=== PATIENT | female | born 1995 | race African-American/Black ===

== ENCOUNTER 2017-10-18 11:17 | Emergency (ER) | payer OTHER ==
[2017-10-18 11:38] VITALS: TEMP 97.7; BMI 25.4
--- NOTE | 2017-10-18 13:17 | PDOC ---
History of Present Illness - General History Source: Patient Exam Limitations: No Limitations - History of Present Illness Initial Comments: 10/18/17 13:34 The patient is a 21 year old female with a significant PMH of asthma who presents to the emergency department via EMS with asthma complications today. The patient reports that she was using her asthma machine last night with no apparent relief. The patient reports that she called EMS today when she felt her chest tightening. The patient reports that she received an albuterol treatment en route to the ED. The patient reports associated non productive cough and a runny nose. The patient also reports being 5 months . She denies any related symptoms. She denies any vaginal bleeding or urinary symptoms. The patient denies any past intubations as per her asthma history. She denies being on any steroids. The patient denies any headache and dizziness. She denies fever, chills, nausea, vomit, diarrhea and constipation. The patient denies any other complaints <Paula Martínez - Last Filed: 10/18/17 13:33> - General History Source: Patient <NoryIshmael Rubio - Last Filed: 10/18/17 15:12> - General Chief Complaint: Asthma Stated Complaint: Asthma Time Seen by Provider: 10/18/17 13:12 Past History <Paula Martínez - Last Filed: 10/18/17 13:33> - Past Medical History Asthma: Yes COPD: No - Suicide/Smoking/Psychosocial Hx Smoking History: Never smoked <Ishmael Harrell - Last Filed: 10/18/17 15:12> - Past Medical History Allergies/Adverse Reactions: Allergies Allergy/AdvReac Type Severity Reaction Status Date / Time No Known Allergies Allergy Verified 10/18/17 11:35 Home Medications: Ambulatory Orders NK [No Known Home Medication] 10/18/17 Review of Systems - Review of Systems Able to Perform ROS?: Yes Comments:: 10/18/17 13:34 GENERAL/CONSTITUTIONAL: No fever or chills. No weakness. HEAD, EYES, EARS, NOSE AND THROAT:(+)runny nose. No change in vision. No ear pain or discharge. No sore throat. CARDIOVASCULAR: No chest pain or shortness of breath. RESPIRATORY:(+) asthma related complications, cough, wheezing. No hemoptysis. GASTROINTESTINAL: No nausea, vomiting, diarrhea or constipation. GENITOURINARY: No dysuria, frequency, or change in urination. MUSCULOSKELETAL: No joint or muscle swelling or pain. No neck or back pain. SKIN: No rash NEUROLOGIC: No headache, vertigo, loss of consciousness, or change in strength/ sensation. ENDOCRINE: No increased thirst. No abnormal weight change. HEMATOLOGIC/LYMPHATIC: No anemia, easy bleeding, or history of blood clots. ALLERGIC/IMMUNOLOGIC: No hives or skin allergy. <Paula Martínez - Last Filed: 10/18/17 13:33> *Physical Exam - Vital Signs Last Vital Signs Temp Pulse Resp BP Pulse Ox 97.7 F 98 H 17 112/77 99 10/18/17 11:35 10/18/17 11:35 10/18/17 11:35 10/18/17 11:35 10/18/17 11:35 - Physical Exam Comments: 10/18/17 13:35 GENERAL: Awake, alert, and fully oriented, in no acute distress HEAD: No signs of trauma EYES: PERRLA, EOMI, sclera anicteric, conjunctiva clear ENT: Auricles normal inspection, hearing grossly normal, nares patent, oropharynx clear without exudates. Moist mucosa NECK: Normal ROM, supple, no lymphadenopathy, JVD, or masses LUNGS:(+) coughing, mild wheezes bilaterally . Breath sounds equal. No crackles HEART: Regular rate and rhythm, normal S1 and S2, no murmurs, rubs or gallops ABDOMEN: (+)gravita abdomen .Soft, nontender, normoactive bowel sounds. No guarding, no rebound. No masses EXTREMITIES: Normal range of motion, no edema. No clubbing or cyanosis. No cords, erythema, or tenderness NEUROLOGICAL: Cranial nerves II through XII grossly intact. Normal speech, normal gait SKIN: Warm, Dry, normal turgor, no rashes or lesions noted. <Paula Martínez - Last Filed: 10/18/17 13:33> - Vital Signs Last Vital Signs Temp Pulse Resp BP Pulse Ox 97.7 F 98 H 17 112/77 99 10/18/17 11:35 10/18/17 11:35 10/18/17 11:35 10/18/17 11:35 10/18/17 11:35 <Ishmael Harrell - Last Filed: 10/18/17 15:12> Moderate Sedation - Procedure Monitoring Vital Signs: Vital Signs Temp Pulse Resp BP Pulse Ox 97.7 F 98 H 17 112/77 99 10/18/17 11:35 10/18/17 11:35 10/18/17 11:35 10/18/17 11:35 10/18/17 11:35 <Paula Martínez - Last Filed: 10/18/17 13:33> - Procedure Monitoring Vital Signs: Vital Signs Temp Pulse Resp BP Pulse Ox 97.7 F 98 H 17 112/77 99 10/18/17 11:35 10/18/17 11:35 10/18/17 11:35 10/18/17 11:35 10/18/17 11:35 <Ishmael Harrell - Last Filed: 10/18/17 15:12> ED Treatment Course - Medications Given in the ED: ED Medications Discontinued Medications Generic Name Dose Route Start Last Admin Trade Name Tierney PRN Reason Stop Dose Admin Albuterol/Ipratropium 1 amp 10/18/17 13:18 10/18/17 13:24 Duoneb - NEB 10/18/17 13:19 1 amp ONCE ONE Administration Prednisone 60 mg 10/18/17 13:25 10/18/17 13:26 Deltasone - PO 10/18/17 13:26 60 mg ONCE ONE Administration <Paula Martínez - Last Filed: 10/18/17 13:33> Medical Decision Making - Medical Decision Making 10/18/17 12:56 The patient is a 21 year old female with a significant PMH of asthma who presents to the emergency department via EMS with asthma complications today, symptoms started last night. Given treatment by EMS. nebs, prednisone 60mg po reassess 10/18/17 15:08 Patient still has persistent asthma complaints of still feeling tight. P/E mild wheezing bilateral I ambulated the patient with worsening of symptoms O2 sat after ambulation 91% on room air Will transfer care to Dr. Gallardo in the main for further eval. <Ishmael Harrell - Last Filed: 10/18/17 15:12> *DC/Admit/Observation/Transfer - Attestations Scribe Attestion: 10/18/17 13:35 Documentation prepared by Paula Martínez, acting as medical doctor md for Jaylen Casillas MD. <Paula Martínez - Last Filed: 10/18/17 13:33> <Ishmael Harrell - Last Filed: 10/18/17 15:12> Diagnosis at time of Disposition: Asthma exacerbation Qualifiers: Asthma severity: mild Asthma persistence: persistent Qualified Code(s): J45.31 - Mild persistent asthma with (acute) exacerbation - Referrals Referrals: Aldo Cardenas MD [Primary Care Provider] - - Patient Instructions - Post Discharge Activity
[2017-10-18] MEDS ORDERED: ALBUTEROL SO4 2.5/IPRATROPIUM 0.5 INH SOL 3 ML VIAL.NEB. NEB ONE ×3 (13:18→20:04)
[2017-10-18] MEDS ORDERED: ALBUTEROL SO4 0.083% IH SOL 2.5 MG/3 ML VIAL.NEB. NEB ONE ×5 (13:20→16:04)
[2017-10-18] MEDS ORDERED: predniSONE 20 MG TABLET (UD) ONE (13:25)
[2017-10-18] MEDS ORDERED: predniSONE 20 MG TABLET (UD) PO ONE (13:25)
[2017-10-18 17:37] VITALS: BP 94/53
--- NOTE | 2017-10-18 18:21 | PDOC ---
History of Present Illness - General History Source: Patient Exam Limitations: No Limitations - History of Present Illness Initial Comments: 10/18/17 18:22 The patient is a 21 year old female, 5 months , with past medical history of asthma presents to the emergency department with an asthma exacerbation. The patient was brought via ems because she was experiencing chest tightness, she was given an albuterol treatment en route. The patient reports the symptoms started last night with mild relief with medication. The patient states her asthma is aggravated by seasonal allergies. Denies any fever , chills, nausea, vomiting. Denies diarrhea or constipation. Denies any dysuria , hematuria, frequency or urgency to urinate. Denies any vaginal bleeding or discharge. Allergies: Seasonal allergies. Social history: None reported PCP: Dr. Aldo Cardenas MD <Sameera Lezama - Last Filed: 10/18/17 18:22> <Catarina Christianson - Last Filed: 10/18/17 20:29> - General Chief Complaint: Asthma Stated Complaint: Asthma Time Seen by Provider: 10/18/17 13:12 Past History <Sameera Lezama - Last Filed: 10/18/17 18:22> - Past Medical History Asthma: Yes COPD: No - Suicide/Smoking/Psychosocial Hx Smoking History: Never smoked <Catarina Christianson - Last Filed: 10/18/17 20:29> - Past Medical History Allergies/Adverse Reactions: Allergies Allergy/AdvReac Type Severity Reaction Status Date / Time No Known Allergies Allergy Verified 10/18/17 11:35 Home Medications: Ambulatory Orders Albuterol 0.083% Nebulizer Nirali [Ventolin 0.083% Nebulizer Soln -] 1 neb NEB Q4H PRN #20 vial 10/18/17 Albuterol Sulfate Inhaler - [Ventolin Hfa Inhaler -] 1 - 2 inh PO Q4H PRN #1 inhaler 10/18/17 Methylprednisolone [Medrol Dose Loi] 4 mg PO ASDIR #21 tablet 10/18/17 Review of Systems - Review of Systems Able to Perform ROS?: Yes Comments:: 10/18/17 18:24 CONSTITUTIONAL: Absent: fever, no chills, no fatigue EYES: Absent: visual changes ENT: Absent: ear pain, no sore throat CARDIOVASCULAR:(+) Chest tightness. Absent: chest pain, no palpitations RESPIRATORY: (+) wheezing Absent: cough. GI: Absent: abdominal pain, no nausea, no vomiting, no constipation, no diarrhea GENITOURINARY: Absent: dysuria, no frequency, no hematuria MUSKULOSKELETAL: Absent: back pain, no arthralgia, no myalgia SKIN: Absent: rash NEURO: Absent: headache <Sameera Lezama - Last Filed: 10/18/17 18:22> *Physical Exam - Vital Signs Last Vital Signs Temp Pulse Resp BP Pulse Ox 97.7 F 90 20 94/53 94 L 10/18/17 11:35 10/18/17 17:36 10/18/17 17:36 10/18/17 17:36 10/18/17 17:36 - Physical Exam Comments: 10/18/17 18:22 GENERAL: During physical exam the patient wasnt in any acute distress. She was alert and conversive. Well-appearing, well-nourished. No apparent distress. HEENT: Normocephalic, atraumatic. PERRL, EOM intact. CARDIOVASCULAR: Normal S1, S2. Regular rate and rhythm. PULMONARY: (+) Mild left base coarse wheezing. Clear to auscultation bilaterally. ABDOMEN: Protuberant abdomen (5 months ), . Soft, non-distended, non-tender. EXTREMITIES: Normal ROM in all four extremities. No gross deformities. SKIN: Warm, dry. No rash NEUROLOGICAL: No focal neurological deficits. <Sameera Lezama - Last Filed: 10/18/17 18:22> - Vital Signs Last Vital Signs Temp Pulse Resp BP Pulse Ox 97.7 F 90 20 94/53 94 L 10/18/17 11:35 10/18/17 17:36 10/18/17 17:36 10/18/17 17:36 10/18/17 17:36 <Catarina Christianson - Last Filed: 10/18/17 20:29> Moderate Sedation - Procedure Monitoring Vital Signs: Vital Signs Temp Pulse Resp BP Pulse Ox 97.7 F 90 20 94/53 94 L 10/18/17 11:35 10/18/17 17:36 10/18/17 17:36 10/18/17 17:36 10/18/17 17:36 <Sameera Lezama - Last Filed: 10/18/17 18:22> - Procedure Monitoring Vital Signs: Vital Signs Temp Pulse Resp BP Pulse Ox 97.7 F 90 20 94/53 94 L 10/18/17 11:35 10/18/17 17:36 10/18/17 17:36 10/18/17 17:36 10/18/17 17:36 <Catarina Christianson - Last Filed: 10/18/17 20:29> ED Treatment Course - Medications Given in the ED: ED Medications Discontinued Medications Generic Name Dose Route Start Last Admin Trade Name Freq PRN Reason Stop Dose Admin Albuterol Sulfate 1 amp 10/18/17 13:20 10/18/17 14:20 Ventolin 0.083% Nebulizer Soln - NEB 10/18/17 13:21 1 amp ONCE ONE Administration Albuterol Sulfate 1 amp 10/18/17 14:16 10/18/17 16:08 Ventolin 0.083% Nebulizer Soln - NEB 10/18/17 14:17 1 amp ONCE ONE Administration Albuterol/Ipratropium 1 amp 10/18/17 13:18 10/18/17 13:24 Duoneb - NEB 10/18/17 13:19 1 amp ONCE ONE Administration Prednisone 60 mg 10/18/17 13:25 10/18/17 13:26 Deltasone - PO 10/18/17 13:26 60 mg ONCE ONE Administration <Sameera Lezama - Last Filed: 10/18/17 18:22> - LABORATORY CBC & Chemistry Diagram: 10/18/17 18:20 10/18/17 18:20 - RADIOLOGY Radiology Studies Ordered: Category Date Time Status FOLLOW-UP US [US] Stat Ultrasound 10/18/17 18:12 Ordered - Medications Given in the ED: ED Medications Discontinued Medications Generic Name Dose Route Start Last Admin Trade Name Freq PRN Reason Stop Dose Admin Albuterol Sulfate 1 amp 10/18/17 13:20 10/18/17 14:20 Ventolin 0.083% Nebulizer Soln - NEB 10/18/17 13:21 1 amp ONCE ONE Administration Albuterol Sulfate 1 amp 10/18/17 14:16 10/18/17 16:08 Ventolin 0.083% Nebulizer Soln - NEB 10/18/17 14:17 1 amp ONCE ONE Administration Albuterol/Ipratropium 1 amp 10/18/17 13:18 10/18/17 13:24 Duoneb - NEB 10/18/17 13:19 1 amp ONCE ONE Administration Prednisone 60 mg 10/18/17 13:25 10/18/17 13:26 Deltasone - PO 10/18/17 13:26 60 mg ONCE ONE Administration <Catarina Christianson - Last Filed: 10/18/17 20:29> Medical Decision Making - Medical Decision Making 10/18/17 20:21 21-year-old female who is 20 weeks presenting with asthma exacerbation. Patient reassessment patient received prednisone and steroids and is no longer wheezing ultrasound showed a single live IUP 20 weeks and 6 days. The heart tones 129 I spoke to labor and delivery and they said that he would not do anything in monitoring except to note heart tones which were already found on her ultrasound. Does not have any pelvic pain and she denies any pelvic bleeding Patient had run out of her albuterol nebs and therefore prescriptions will be sent to her pharmacy <Catarina Christianson - Last Filed: 10/18/17 20:29> *DC/Admit/Observation/Transfer - Attestations Scribe Attestion: 10/18/17 18:25 Documentation prepared by Sameera Lezama, acting as claim review medical director for Catarina Christianson MD. <Sameera Lezama - Last Filed: 10/18/17 18:22> <Catarina Christianson - Last Filed: 10/18/17 20:29> Diagnosis at time of Disposition: Asthma exacerbation Qualifiers: Asthma severity: mild Asthma persistence: persistent Qualified Code(s): J45.31 - Mild persistent asthma with (acute) exacerbation Qualifiers: Weeks of gestation: 20 weeks Qualified Code(s): Z3A.20 - 20 weeks gestation of - Discharge Dispostion Disposition: HOME Condition at time of disposition: Stable - Prescriptions Prescriptions: Albuterol 0.083% Nebulizer Nirali [Ventolin 0.083% Nebulizer Soln -] 1 neb NEB Q4H PRN #20 vial PRN Reason: Asthma Albuterol Sulfate Inhaler - [Ventolin Hfa Inhaler -] 1 - 2 inh PO Q4H PRN #1 inhaler PRN Reason: Asthma Methylprednisolone [Medrol Dose Loi] 4 mg PO ASDIR #21 tablet - Referrals Referrals: Aldo Cardenas MD [Primary Care Provider] - - Patient Instructions Printed Discharge Instructions: DI for Asthma -- Adult, DI for -- Discomforts and Remedies Additional Instructions: 1-PLEASE SHADE HANGER YOUR PRESCRIPTION AT YOUR PHARMACY 2-PLEASE FOLLOW UP WITH YOUR SWEET GOODS MACHINE OPERATOR 3-RETURN FOR ANY WORSENING SYMPTOMS - Post Discharge Activity
[2017-10-18 18:35] LABS: BASO % 0.4 % (0-2.0); HEMATOCRIT 36.2 % (32.4-45.2); HEMOGLOBIN 12.2 GM/dL (10.7-15.3); LYMPH % 6.9 % (8-40); MCH 32.7 pg (25.7-33.7); MCHC 33.6 g/dl (32.0-36.0); MEAN CELL VOLUME 97.1 fl (80-96); MEAN PLT VOLUME 7.4 fl (7.5-11.1); MONO % 1.8 % (3.8-10.2); NEUT % 89.9 % (42.8-82.8); PLATELET COUNT 284 K/MM3 (134-434); RBC 3.73 M/mm3 (3.60-5.2); RDW 15.6 % (11.6-15.6); WHITE BLOOD COUNT 11.9 K/mm3 (4.0-10.0)
[2017-10-18 19:20] LABS: ALBUMIN 3.3 g/dl (3.4-5.0); ALK PHOS 50 U/L (45-117); ANION GAP 9 (8-16); BILIRUBIN,TOTAL 0.3 mg/dL (0.2-1.0); BLOOD UREA NITROGEN 5 mg/dL (7-18); CALCIUM 8.8 mg/dL (8.5-10.1); CHLORIDE 107 mmol/L (98-107); CO2 21 mmol/L (21-32); CREATININE 0.6 mg/dL (0.55-1.02); GLUCOSE,RANDOM 79 mg/dL (74-106); POTASSIUM 3.7 mmol/L (3.5-5.1); SGOT/AST 17 U/L (15-37); SGPT/ALT 20 U/L (12-78); SODIUM 137 mmol/L (136-145); TOT PROT 7.3 g/dl (6.4-8.2)
[2017-10-18 20:10] VITALS: PULSE 97
[2017-10-19] MEDS ORDERED: predniSONE 20 MG TABLET (UD) PO ONE (13:19)
== END 2017-10-18 20:36 | disposition home or self-care (01) ==
LOC: JERFT 11:17 → JER 11:17
PROC: 3E0F7GC Introduction of Other Therapeutic Substance into Respiratory Tract, Via Natural or Artificial Opening (ICD-10-PCS; principal; 2017-10-18)
PROC: 3E0F7GC Introduction of Other Therapeutic Substance into Respiratory Tract, Via Natural or Artificial Opening (ICD-10-PCS; 2017-10-18)
PROC: 3E0F7GC Introduction of Other Therapeutic Substance into Respiratory Tract, Via Natural or Artificial Opening (ICD-10-PCS; 2017-10-18)
DX: O99.512 Diseases of the respiratory system complicating pregnancy, second trimester (principal); J45.31 Mild persistent asthma with (acute) exacerbation; Z3A.20 20 weeks gestation of pregnancy
CPT/HCPCS: 36415; 76816-TC; 80053; 85025; 94640; 99281-25; J7620

== ENCOUNTER 2018-02-24 03:50 | Inpatient (IN) | payer OTHER ==
[2018-02-24] MEDS ORDERED: LACTATED RINGERS SOLUTION 1,000 ML IV SCH (04:30)
[2018-02-24 04:43] VITALS: BMI 22.8
[2018-02-24] MEDS ORDERED: AMPICILLIN SODIUM 2 GM VIAL ONE (04:44)
[2018-02-24] MEDS ORDERED: AMPICILLIN - 2 GM in SODIUM CHLORIDE 100 ML IVPB ONE (04:53)
[2018-02-24 05:31] LABS: BASO % 0.7 % (0-2.0); EOS % 2.5 % (0-4.5); HEMATOCRIT 38.9 % (32.4-45.2); HEMOGLOBIN 13.3 GM/dL (10.7-15.3); LYMPH % 22.5 % (8-40); MCH 33.3 pg (25.7-33.7); MCHC 34.2 g/dl (32.0-36.0); MEAN CELL VOLUME 97.4 fl (80-96); MEAN PLT VOLUME 8.4 fl (7.5-11.1); MONO % 6.7 % (3.8-10.2); NEUT % 67.6 % (42.8-82.8); PLATELET COUNT 293 K/MM3 (134-434); RBC 3.99 M/mm3 (3.60-5.2); RDW 14.2 % (11.6-15.6); WHITE BLOOD COUNT 10.7 K/mm3 (4.0-10.0)
[2018-02-24] MEDS ORDERED: ACETAMINOPHEN 325 MG TABLET (FP) ONE (05:34)
[2018-02-24] MEDS: ACETAMINOPHEN 325 MG TABLET (FP) PO PRN ×4 (05:35→16:45)
[2018-02-24] MEDS ORDERED: IBUPROFEN 600 MG TABLET (FP) PO ONE (05:35)
[2018-02-24] MEDS: IBUPROFEN 600 MG TABLET (FP) PO PRN ×4 (05:35→16:46)
[2018-02-24 05:43] LABS: INR 0.9 (0.83-1.09); PROTHROMBIN TIME (PATIENT) 10.2 SEC (9.7-13.0)
[2018-02-24] MEDS ORDERED: WITCH HAZEL 50% (TUCKS) 40 PAD/JAR PAD TP PRN (05:43)
[2018-02-24] MEDS ORDERED: METHYLERGONOVINE MALEATE 0.2 MG/1 ML AMP IM PRN (05:43)
[2018-02-24] MEDS ORDERED: BISACODYL 10 MG SUPP.RECT RC PRN (05:43)
[2018-02-24] MEDS ORDERED: BENZOCAINE 20% 57 GM BOTTLE TP PRN (05:43)
[2018-02-24] MEDS ORDERED: BENZOCAINE 28 GM HEMORRHOIDAL OINTMENT TP PRN (05:43)
--- NOTE | 2018-02-24 05:43 | HP ---
Past Medical History - Admission Chief Complaint: Labor pain History of Present Illness: 22 yo @39 weeks gestation, admitted due to c/o spontaneous rupture of membrane. Upon admission she was 6cm dilated. History Source: Patient Limitations to Obtaining History: No Limitations - Past Medical History ...: 2 ...Para: 1 ...Term: 1 ...: 0 ...Spon : 0 ...Induced : 0 ...Multiple Gestation: 0 ... Weeks Gestation by Dates: 39.2 ...EDC by Dates: 03/01/18 - Past Surgical History Past Surgical History: Yes: None Hx Myomectomy: No Hx Transabdominal Cerclage: No - Smoking History Smoking history: Never smoked - Alcohol/Substance Use Hx Alcohol Use: No History of Substance Use: reports: None - Social History History of Recent Travel: No Home Medications - Allergies Allergies/Adverse Reactions: Allergies Allergy/AdvReac Type Severity Reaction Status Date / Time No Known Allergies Allergy Verified 10/18/17 11:35 - Home Medications Home Medications: Ambulatory Orders Albuterol 0.083% Nebulizer Nirali [Ventolin 0.083% Nebulizer Soln -] 1 neb NEB Q4H PRN #20 vial 10/18/17 Albuterol Sulfate Inhaler - [Ventolin Hfa Inhaler -] 1 - 2 inh PO Q4H PRN #1 inhaler 10/18/17 Methylprednisolone [Medrol Dose Loi] 4 mg PO ASDIR #21 tablet 10/18/17 Family Disease History - Family Disease History Family History: Unremarkable Review of Systems - Review of Systems Constitutional: reports: No Symptoms Eyes: reports: No Symptoms HENT: reports: No Symptoms Neck: reports: No Symptoms Cardiovascular: reports: No Symptoms Respiratory: reports: No Symptoms Gastrointestinal: reports: No Symptoms Genitourinary: reports: Pain Breasts: reports: No Symptoms Reported Musculoskeletal: reports: No Symptoms Integumentary: reports: No Symptoms Neurological: reports: No Symptoms Endocrine: reports: No Symptoms Hematology/Lymphatic: reports: No Symptoms Psychiatric: reports: No Symptoms Pain Intensity: 7 Physical Exam - Maternity Vital Signs: Vital Signs Temperature 97.8 F 02/24/18 04:35 Pulse Rate 94 H 02/24/18 04:35 Respiratory Rate 20 02/24/18 04:35 Blood Pressure 126/76 02/24/18 04:35 O2 Sat by Pulse Oximetry (%) Constitutional: Yes: Well Nourished Eyes: Yes: Conjunctiva Clear HENT: Yes: Atraumatic Neck: Yes: Supple Cardiovascular: Yes: Regular Rate and Rhythm Lungs: Clear to auscultation - Abdominal Exam/OB Number of Fetuses: Single Presentation: Vertex - Vaginal Exam/OB Dilatation (cm): 6 Effacement (%): 100 Amniotic Membrane Status: Ruptured - Physical Exam ...Motor Strength: WNL Psychiatric: Yes: Alert, Oriented - Labs Lab Results: CBC, BMP 02/24/18 04:29 Problem List - Problems (1) Spontaneous rupture of membranes Code(s): [id number] - Assessment/Plan Spontaneous rupture of membrane Admit to L&D Analgesia as needed Anticipate
[2018-02-24] MEDS ORDERED: DEXTROSE 5%-LACTATED RINGERS 1,000 ML IV SCH (05:45)
[2018-02-24] MEDS ORDERED: OXYTOCIN 20 UNITS in 0.9% NS 20 UNIT/1,000 ML INFUS.BAG IV SCH (05:45)
[2018-02-24 05:46] LABS: ACTIVATED PTT 27.2 SECONDS (25.2-36.5)
--- NOTE | 2018-02-24 05:47 | PN ---
Delivery - Delivery Vaginal Delivery: Spontaneous Episiotomy/Laceration: None EBL (cc): 250 Delivery, Single - Feeding Plan Initial Plan: Elected not to breastfeed exclusively throughout hospitalization Remarks - Remarks Remarks: Normal spontaneous vaginal delivery of a live infant boy over intact perineum. Nose / Oropharynx suctioned @ perineum. Cord clamped and cut. Placenta expelled spontaneously intact. Baby handed to Grain Handler. Mother in stable condition.
[2018-02-24 05:55] LABS: ALBUMIN 2.8 g/dl (3.4-5.0); ALK PHOS 106 U/L (45-117); ANION GAP 12 MMOL/L (8-16); BILIRUBIN,TOTAL 0.3 mg/dL (0.2-1); BLOOD UREA NITROGEN 7 mg/dL (7-18); CHLORIDE 108 mmol/L (98-107); CO2 22 mmol/L (21-32); CREATININE 0.6 mg/dL (0.55-1.3); GLUCOSE,RANDOM 87 mg/dL (74-106); POTASSIUM 3.8 mmol/L (3.5-5.1); SGOT/AST 17 U/L (15-37); SGPT/ALT 21 U/L (13-61); SODIUM 141 mmol/L (136-145); TOT PROT 6.8 g/dl (6.4-8.2)
[2018-02-24] MEDS ORDERED: TUBERCULIN PPD 5 TU/0.1ML SYRINGE (IN PATIENT USE ONLY) ID ONE (06:00)
[2018-02-24 08:41] LABS: URINE APPEARANCE TURBID; URINE BILIRUBIN NEGATIVE (<2.0 mg/dL); URINE COLOR RED; URINE GLUCOSE (UA) 1+ (NEGATIVE); URINE KETONE NEGATIVE (NEGATIVE); URINE LEUK ESTERASE NEGATIVE (NEGATIVE); URINE NITRITE NEGATIVE (NEGATIVE); URINE UROBILINOGEN NEGATIVE mg/dL (0.2-1.0)
[2018-02-24 08:52] LABS: URINE PROTEIN 3+ (NEGATIVE)
[2018-02-24] MEDS ORDERED: AMPICILLIN - 1 GM in SODIUM CHLORIDE 100 ML IVPB SCH (09:00)
[2018-02-24] MEDS: FERROUS SO4 325 MG TABLET (FP) PO SCH ×2 (09:24→21:38)
[2018-02-24] MEDS: PRENATAL VITAMINS W/ FOLIC ACID TABLET (FP) PO SCH (09:25)
[2018-02-24 09:49] LABS: COCAINE, UR NEGATIVE ng/ml (CUTOFF=300); METHADONE, UR NEGATIVE ng/ml (CUTOFF=300); OPIATES, URI NEGATIVE ng/ml (CUTOFF=300); PHENCYCLIDINE,URINE NEGATIVE ng/ml (CUTOFF=25); URINE AMPHETAMINES NEGATIVE ng/ml (CUTOFF=500); URINE BARBITURATES NEGATIVE ng/ml (CUTOFF=200); URINE BENZODIAZEPINES NEGATIVE ng/ml (CUTOFF=200)
[2018-02-25] MEDS: ACETAMINOPHEN 325 MG TABLET (FP) PO PRN ×4 (01:29→19:33)
[2018-02-25] MEDS: IBUPROFEN 600 MG TABLET (FP) PO PRN ×4 (01:30→19:33)
[2018-02-25 06:09] LABS: HBsAG SCREEN Negative (Negative)
[2018-02-25 07:23] LABS: BASO % 1.1 % (0-2.0); EOS % 3.9 % (0-4.5); HEMATOCRIT 37.4 % (32.4-45.2); HEMOGLOBIN 12.6 GM/dL (10.7-15.3); LYMPH % 21.8 % (8-40); MCH 33.1 pg (25.7-33.7); MCHC 33.8 g/dl (32.0-36.0); MEAN CELL VOLUME 97.7 fl (80-96); NEUT % 67.2 % (42.8-82.8); PLATELET COUNT 244 K/MM3 (134-434); RBC 3.82 M/mm3 (3.60-5.2); RDW 14.2 % (11.6-15.6); WHITE BLOOD COUNT 13.4 K/mm3 (4.0-10.0)
[2018-02-25 08:08] LABS: RUBELLA IgG ANTIBODY 1.34 index (Immune >0.99)
[2018-02-25] MEDS: PRENATAL VITAMINS W/ FOLIC ACID TABLET (FP) PO SCH (09:03)
[2018-02-25] MEDS: FERROUS SO4 325 MG TABLET (FP) PO SCH ×2 (09:03→23:17)
--- NOTE | 2018-02-25 10:00 | PN ---
Post Progress Note - Subjective Subjective: 22 yo Para 1 status post vaginal delivery, seen and evaluated. Doing well. Post Day: 1 Type of Delivery: Vital Signs: Vital Signs Temperature 97.7 F 02/25/18 07:20 Pulse Rate 65 02/25/18 07:20 Respiratory Rate 20 02/25/18 07:20 Blood Pressure 107/63 02/25/18 07:20 O2 Sat by Pulse Oximetry (%) Breast Exam: Yes: Soft Uterus: Yes: Fundus Firm Abdomen/GI: Yes: Abdomen soft, Tolerating PO Lochia: Yes: Rubra Lochia, amount: Moderate Extremities: Yes: Calves non-tender Perineum: Yes: Intact Activity: Ambulating - Labs Labs: CBC WBC 13.4 K/mm3 (4.0-10.0) H 02/25/18 06:45 RBC 3.82 M/mm3 (3.60-5.2) 02/25/18 06:45 Hgb 12.6 GM/dL (10.7-15.3) 02/25/18 06:45 Hct 37.4 % (32.4-45.2) 02/25/18 06:45 MCV 97.7 fl (80-96) H 02/25/18 06:45 MCH 33.1 pg (25.7-33.7) 02/25/18 06:45 MCHC 33.8 g/dl (32.0-36.0) 02/25/18 06:45 RDW 14.2 % (11.6-15.6) 02/25/18 06:45 Plt Count 244 K/MM3 (134-434) 02/25/18 06:45 MPV 8.0 fl (7.5-11.1) 02/25/18 06:45 Absolute Neuts (auto) 9.0 K/mm3 (1.5-8.0) H 02/25/18 06:45 Neutrophils % 67.2 % (42.8-82.8) 02/25/18 06:45 Lymphocytes % 21.8 % (8-40) 02/25/18 06:45 Monocytes % 6.0 % (3.8-10.2) 02/25/18 06:45 Eosinophils % 3.9 % (0-4.5) 09/28/18 06:45 Basophils % 1.1 % (0-2.0) 02/25/18 06:45 Nucleated RBC % 0 % (0-0) 02/25/18 06:45 Problem List - Problems (1) Spontaneous rupture of membranes Code(s): SHR9964 - (2) Status post normal vaginal delivery Code(s): PAG0864 - Assessment/Plan Status post vaginal delivery Stable Continue routine care
[2018-02-25] MEDS ORDERED: SENNOSIDES/DOCUSATE COMBO (SENNA PLUS) TABLET (UD) PO PRN (22:00)
[2018-02-26] MEDS: IBUPROFEN 600 MG TABLET (FP) PO PRN (00:56)
[2018-02-26] MEDS: ACETAMINOPHEN 325 MG TABLET (FP) PO PRN (00:57)
[2018-02-26 09:09] VITALS: BP 105/67; PULSE 62; TEMP 97.8
[2018-02-26] MEDS: PRENATAL VITAMINS W/ FOLIC ACID TABLET (FP) PO SCH (09:12)
[2018-02-26] MEDS: FERROUS SO4 325 MG TABLET (FP) PO SCH (09:12)
--- NOTE | 2018-02-26 10:43 | DS ---
Physical Exam-DIANETICIST Vital Signs: Vital Signs Temperature 97.8 F 02/26/18 09:00 Pulse Rate 62 02/26/18 09:00 Respiratory Rate 20 02/26/18 09:00 Blood Pressure 105/67 02/26/18 09:00 O2 Sat by Pulse Oximetry (%) Constitutional: Yes: Well Nourished, No Distress, Calm Eyes: Yes: WNL, Conjunctiva Clear, EOM Intact HENT: Yes: Atraumatic, Normocephalic Neck: Yes: WNL, Supple, Trachea Midline Cardiovascular: Yes: WNL, Regular Rate and Rhythm Respiratory: Yes: WNL, Regular, CTA Bilaterally Gastrointestinal: Yes: WNL ...Rectal Exam: Yes: WNL Renal/: Yes: WNL Breast(s): Yes: WNL Musculoskeletal: Yes: WNL Extremities: Yes: WNL Integumentary: Yes: WNL Neurological: Yes: WNL, Alert, Oriented ...Motor Strength: WNL Psychiatric: Yes: WNL, Alert, Oriented Labs: CBC, BMP 02/25/18 06:45 02/24/18 04:25 Delivery - Delivery Vaginal Delivery: Spontaneous Type of Anesthesia: None Episiotomy/Laceration: None EBL (cc): 250 Delivery, Single - Stages of Labor Date 1st Stage Initiatied: 02/24/18 Time 1st Stage Initiated: 03:00 Date 2nd Stage Initiated: 02/24/18 Time 2nd Stage Initiated: 05:00 Date of Delivery: 02/24/18 Time of Delivery: 05:17 Time Placenta Delivered: 05:20 - Condition of Cash Management Clerk/Cds Sales Advisor Present: Yes Infant Gender: Male Weight: 2.637 kg Position: Left, OA Total Hours ROM (Hrs/Mins): 2 hours 3 min - 1 Minute Total Score: 9 5 Minutes Total Score: 9 - [place] Feeding Plan Initial Plan: Elected not to breastfeed exclusively throughout hospitalization Remarks - Remarks Remarks: PPD#2 s/p Uncomplicated delivery Routine PP course D/C to home today with follow up in 6 weeks Discharge Summary Reason For Visit: LABOR Current Active Problems Spontaneous rupture of membranes (Acute) Status post normal vaginal delivery (Acute) Condition: Stable - Instructions Disposition: HOME - Home Medications Comprehensive Discharge Medication List: Ambulatory Orders Albuterol 0.083% Nebulizer Nirali [Ventolin 0.083% Nebulizer Soln -] 1 neb NEB Q4H PRN #20 vial 10/18/17 Albuterol Sulfate Inhaler - [Ventolin Hfa Inhaler -] 1 - 2 inh PO Q4H PRN #1 inhaler 10/18/17 Methylprednisolone [Medrol Dose Loi] 4 mg PO ASDIR #21 tablet 10/18/17
== END 2018-02-26 14:20 | disposition home or self-care (01) | DRG 560 ==
LOC: JLDR 03:50 → J3W 08:15
PROVIDERS: ADMIT Obstetrics & Gynecology; ATTEND Obstetrics & Gynecology
PROC: 10E0XZZ Delivery of Products of Conception, External Approach (ICD-10-PCS; principal; 2018-02-24)
DX: O80 Encounter for full-term uncomplicated delivery (principal); Z3A.39 39 weeks gestation of pregnancy; Z37.0 Single live birth
CPT/HCPCS: 36415; 59409; 80053; 80307; 81003; 81015; 85025; 85610; 85730; 86593; 86762; 86850; 86900; 86901; 87340; 87389

== ENCOUNTER 2022-03-28 11:16 | Emergency (ER) | payer OTHER ==
[2022-03-28 11:27] VITALS: BP 122/68; PULSE 70; RESP 18; TEMP 97.4; BMI 25.3
[2022-03-28] MEDS ORDERED: SODIUM CHLORIDE 0.9% 500 ML INFUS.BAG IV ONE (12:40)
[2022-03-28] MEDS ORDERED: ACETAMINOPHEN 1000 MG/100 ML BAG IVPB ONE (12:40)
[2022-03-28] MEDS ORDERED: ACETAMINOPHEN INJECTION 100 ML IVPB ONE (13:16)
[2022-03-28 14:04] LABS: BASO % 3.5 % (0-2.0); EOS % 4.3 % (0-4.5); HEMATOCRIT 43.4 % (32.4-45.2); HEMOGLOBIN 14.9 GM/dL (10.7-15.3); LYMPH % 40.3 % (8-40); MCH 32.6 pg (25.7-33.7); MCHC 34.4 g/dl (32.0-36.0); MEAN CELL VOLUME 94.6 fl (80-96); MEAN PLT VOLUME 7.4 fl (7.5-11.1); MONO % 8.1 % (3.8-10.2); NEUT % 43.8 % (42.8-82.8); PLATELET COUNT 432 10^3/uL (134-434); RBC 4.58 M/mm3 (3.60-5.2); RDW 14.5 % (11.6-15.6)
[2022-03-28 14:14] LABS: ALBUMIN 4.3 g/dl (3.4-5.0); CALCIUM 9.3 mg/dL (8.5-10.1)
[2022-03-28 14:18] LABS: CREATININE 0.9 mg/dL (0.55-1.3)
[2022-03-28 14:20] LABS: BILIRUBIN,TOTAL 0.3 mg/dL (0.2-1); TOT PROT 8.4 g/dl (6.4-8.2)
[2022-03-28 15:12] LABS: EPI CELLS 13 /uL (0-25.1); HCG,QUALITATIVE URINE Negative; HYALINE CASTS 6 /uL (0-3.1); PH,URINE 5.5 (5.0-8.0); URINE APPEARANCE CLOUDY; URINE BACTERIA 553 /uL (0-1359); URINE BILIRUBIN NEGATIVE (NEGATIVE); URINE COLOR ORANGE; URINE GLUCOSE (UA) NEGATIVE (NEGATIVE); URINE KETONE NEGATIVE (NEGATIVE); URINE LEUK ESTERASE 1+ (NEGATIVE); URINE NITRITE NEGATIVE (NEGATIVE); URINE PROTEIN 3+ (NEGATIVE); URINE RBC 390 /uL (0-23.9); URINE WBC 431 /uL (0-25.8)
== END 2022-03-28 16:10 | disposition home or self-care (01) ==
LOC: JERFT 11:16 → JER 11:16 → JERFT 16:10
PROC: 3E0333Z Introduction of Anti-inflammatory into Peripheral Vein, Percutaneous Approach (ICD-10-PCS; principal; 2022-03-28)
DX: N30.01 Acute cystitis with hematuria (principal)
CPT/HCPCS: 36415; 71046-TC-FY; 80053; 81003; 84703; 85025; 87086; 87186; 96374; 99284-25

== ENCOUNTER 2023-01-09 14:38 | Inpatient (IN) | payer OTHER ==
[2023-01-09] MEDS ORDERED: ALBUTEROL SO4 2.5/IPRATROPIUM 0.5 INH SOL 3 ML VIAL.NEB. NEB ONE ×4 (14:54→19:54)
[2023-01-09 14:55] VITALS: BMI 31.5
[2023-01-09] MEDS ORDERED: DEXAMETHASONE SOD PHOSPHATE 10 MG/1 ML VIAL ONE (15:52)
[2023-01-09] MEDS ORDERED: MAGNESIUM SULFATE IN WATER 2 GM/50 ML IVPB IVPB ONE ×2 (15:54→15:56)
[2023-01-09] MEDS ORDERED: DEXAMETHASONE SOD PHOSPHATE 10 MG/1 ML VIAL IVPUSH ONE (15:57)
[2023-01-09 16:51] LABS: BASO % 1.5 % (0-2.0); EOS % 8.2 % (0-4.5); HEMATOCRIT 44.2 % (32.4-45.2); HEMOGLOBIN 14.4 GM/dL (10.7-15.3); LYMPH % 21.4 % (8-40); MCH 30.8 pg (25.7-33.7); MCHC 32.6 g/dl (32.0-36.0); MEAN CELL VOLUME 94.5 fl (80-96); MEAN PLT VOLUME 7.7 fl (7.5-11.1); NEUT % 62.9 % (42.8-82.8); PLATELET COUNT 346 10^3/uL (134-434); RBC 4.68 M/mm3 (3.60-5.2); RDW 14.5 % (11.6-15.6); WHITE BLOOD COUNT 8.9 K/mm3 (4.0-10.0)
[2023-01-09 17:23] LABS: POTASSIUM 4.3 mmol/L (3.5-5.1)
[2023-01-09 17:25] LABS: CALCIUM 8.9 mg/dL (8.5-10.1)
[2023-01-09 17:26] LABS: BLOOD UREA NITROGEN 12.3 mg/dL (7-18)
[2023-01-09 17:29] LABS: CREATININE 0.8 mg/dL (0.55-1.3)
[2023-01-09 17:31] LABS: BILIRUBIN,TOTAL 0.3 mg/dL (0.2-1); TOT PROT 7.6 g/dl (6.4-8.2)
[2023-01-09] MEDS ORDERED: AZITHROMYCIN IVPB 500 MG in DEXTROSE 5%-WATER - 250 ML IVPB ONE (17:47)
[2023-01-09] MEDS ORDERED: AZITHROMYCIN IVPB 500 MG/250 ML BAG IVPB ONE (18:31)
[2023-01-09] MEDS: ALBUTEROL SO4 2.5/IPRATROPIUM 0.5 INH SOL 3 ML VIAL.NEB. NEB SCH ×2 (19:58→22:44)
[2023-01-10] MEDS: methylPREDNISolone NA SUCC 40 MG/1 ML VIAL IVPUSH SCH ×3 (02:28→17:28)
[2023-01-10] MEDS: ALBUTEROL SO4 0.083% IH SOL 2.5 MG/3 ML VIAL.NEB. NEB PRN ×2 (02:28→06:44)
[2023-01-10] MEDS: ALBUTEROL SO4 2.5/IPRATROPIUM 0.5 INH SOL 3 ML VIAL.NEB. NEB SCH ×4 (08:00→20:00)
[2023-01-10 09:56] LABS: HEMATOCRIT 41.2 % (32.4-45.2); HEMOGLOBIN 13.9 GM/dL (10.7-15.3); MCH 31.7 pg (25.7-33.7); MCHC 33.8 g/dl (32.0-36.0); MEAN CELL VOLUME 93.6 fl (80-96); MEAN PLT VOLUME 8.1 fl (7.5-11.1); PLATELET COUNT 383 10^3/uL (134-434); RDW 14.5 % (11.6-15.6); WHITE BLOOD COUNT 14.8 K/mm3 (4.0-10.0)
[2023-01-10] MEDS: LORATADINE 10 MG TABLET PO SCH (10:26)
[2023-01-10] MEDS: ENOXAPARIN NA (PORCINE) 40 MG/0.4 ML DISP.SYRIN SQ SCH (10:26)
[2023-01-10] MEDS: FLUTICASONE/SALMETEROL (WIXELA) 100 MCG/50 MCG DISKUS IH SCH ×2 (10:27→21:46)
[2023-01-10 10:34] LABS: POTASSIUM 4.6 mmol/L (3.5-5.1)
[2023-01-10 10:35] LABS: CALCIUM 8.9 mg/dL (8.5-10.1)
[2023-01-10 10:36] LABS: BLOOD UREA NITROGEN 12.5 mg/dL (7-18); MAGNESIUM 2.5 mg/dL (1.8-2.4)
[2023-01-10 10:39] LABS: CREATININE 0.8 mg/dL (0.55-1.3); PHOSPHOROUS 3.3 mg/dL (2.5-4.9)
[2023-01-10] MEDS: ACETAMINOPHEN 325 MG TABLET (FP) PO PRN (11:23)
[2023-01-10] MEDS: MONTELUKAST NA 10 MG TABLET PO SCH (21:46)
[2023-01-11] MEDS: methylPREDNISolone NA SUCC 40 MG/1 ML VIAL IVPUSH SCH ×3 (01:53→18:16)
[2023-01-11] MEDS: ALBUTEROL SO4 2.5/IPRATROPIUM 0.5 INH SOL 3 ML VIAL.NEB. NEB SCH ×4 (07:35→20:23)
[2023-01-11] MEDS: ENOXAPARIN NA (PORCINE) 40 MG/0.4 ML DISP.SYRIN SQ SCH (09:59)
[2023-01-11] MEDS: LORATADINE 10 MG TABLET PO SCH (10:00)
[2023-01-11] MEDS: FLUTICASONE/SALMETEROL (WIXELA) 100 MCG/50 MCG DISKUS IH SCH ×2 (10:00→21:46)
[2023-01-11] MEDS: ACETAMINOPHEN 325 MG TABLET (FP) PO PRN (10:20)
[2023-01-11] MEDS: guaiFENesin 200 MG/10 ML 10 ML UNIT-DOSE CUPS PO PRN ×2 (11:46→18:15)
[2023-01-11] MEDS: MONTELUKAST NA 10 MG TABLET PO SCH (21:46)
[2023-01-12] MEDS: ALBUTEROL SO4 0.083% IH SOL 2.5 MG/3 ML VIAL.NEB. NEB PRN (01:30)
[2023-01-12] MEDS: methylPREDNISolone NA SUCC 40 MG/1 ML VIAL IVPUSH SCH ×2 (02:31→09:39)
[2023-01-12] MEDS: ALBUTEROL SO4 2.5/IPRATROPIUM 0.5 INH SOL 3 ML VIAL.NEB. NEB SCH ×3 (07:50→15:14)
[2023-01-12] MEDS: LORATADINE 10 MG TABLET PO SCH (09:38)
[2023-01-12] MEDS: ENOXAPARIN NA (PORCINE) 40 MG/0.4 ML DISP.SYRIN SQ SCH (09:38)
[2023-01-12] MEDS: FLUTICASONE/SALMETEROL (WIXELA) 100 MCG/50 MCG DISKUS IH SCH (09:38)
[2023-01-12] MEDS: ACETAMINOPHEN 325 MG TABLET (FP) PO PRN (09:43)
[2023-01-12 10:23] LABS: BASO % 0.1 % (0-2.0); HEMATOCRIT 40.1 % (32.4-45.2); HEMOGLOBIN 13.6 GM/dL (10.7-15.3); LYMPH % 8.6 % (8-40); MCH 31.5 pg (25.7-33.7); MCHC 33.9 g/dl (32.0-36.0); MEAN CELL VOLUME 92.9 fl (80-96); MEAN PLT VOLUME 7.5 fl (7.5-11.1); MONO % 1.8 % (3.8-10.2); NEUT % 89.5 % (42.8-82.8); PLATELET COUNT 366 10^3/uL (134-434); RBC 4.31 M/mm3 (3.60-5.2); RDW 14.7 % (11.6-15.6); WHITE BLOOD COUNT 16.4 K/mm3 (4.0-10.0)
[2023-01-12 10:55] LABS: POTASSIUM 3.7 mmol/L (3.5-5.1)
[2023-01-12 11:11] LABS: ALBUMIN 3.7 g/dl (3.4-5.0); CALCIUM 8.9 mg/dL (8.5-10.1)
[2023-01-12 11:12] LABS: BLOOD UREA NITROGEN 13.5 mg/dL (7-18); MAGNESIUM 2.4 mg/dL (1.8-2.4)
[2023-01-12 11:14] LABS: CREATININE 0.9 mg/dL (0.55-1.3)
[2023-01-12 11:16] LABS: BILIRUBIN,TOTAL 0.2 mg/dL (0.2-1); TOT PROT 7.2 g/dl (6.4-8.2)
[2023-01-12] MEDS: guaiFENesin 200 MG/10 ML 10 ML UNIT-DOSE CUPS PO PRN (12:11)
[2023-01-12] MEDS ORDERED: guaiFENesin/CODEINE 10 ML UNIT-DOSE CUPS PO PRN (15:11)
[2023-01-12] MEDS ORDERED: ALBUTEROL SO4 2.5/IPRATROPIUM 0.5 INH SOL 3 ML VIAL.NEB. NEB PRN (15:17)
[2023-01-12] MEDS ORDERED: ALBUTEROL SO4 0.083% IH SOL 2.5 MG/3 ML VIAL.NEB. NEB STA (15:19)
[2023-01-12] MEDS ORDERED: ALBUTEROL SO4 0.083% IH SOL 2.5 MG/3 ML VIAL.NEB. NEB SCH ×2 (15:30)
[2023-01-12] MEDS: DOXYCYCLINE INJECTION 100 MG in DEXTROSE 5%-WATER 100 ML IVPB SCH ×2 (16:08→21:20)
[2023-01-12] MEDS: ALBUTEROL SO4 0.083% IH SOL 2.5 MG/3 ML VIAL.NEB. NEB SCH ×2 (17:06→20:38)
[2023-01-12] MEDS: TIOTROPIUM BROMIDE 2.5 MCG (SPIRIVA) RESPIMAT INHALER IH SCH (17:07)
[2023-01-12] MEDS: methylPREDNISolone NA SUCC 125 MG/2 ML VIAL IVPUSH SCH (21:20)
[2023-01-12] MEDS: MONTELUKAST NA 10 MG TABLET PO SCH (21:20)
[2023-01-12] MEDS: BUDESONIDE/FORMETEROL FUMARATE 160/4.5 mcg INHALER IH SCH (21:21)
[2023-01-13] MEDS: ALBUTEROL SO4 0.083% IH SOL 2.5 MG/3 ML VIAL.NEB. NEB PRN ×2 (02:00→14:29)
[2023-01-13] MEDS: methylPREDNISolone NA SUCC 125 MG/2 ML VIAL IVPUSH SCH ×4 (02:16→20:59)
[2023-01-13] MEDS: ALBUTEROL SO4 0.083% IH SOL 2.5 MG/3 ML VIAL.NEB. NEB SCH ×4 (07:50→20:00)
[2023-01-13 10:08] LABS: HEMATOCRIT 40.3 % (32.4-45.2); HEMOGLOBIN 13.6 GM/dL (10.7-15.3); MCH 31.3 pg (25.7-33.7); MCHC 33.9 g/dl (32.0-36.0); MEAN CELL VOLUME 92.5 fl (80-96); MEAN PLT VOLUME 7.4 fl (7.5-11.1); PLATELET COUNT 393 10^3/uL (134-434); RBC 4.36 M/mm3 (3.60-5.2); RDW 14.6 % (11.6-15.6); WHITE BLOOD COUNT 16.5 K/mm3 (4.0-10.0)
[2023-01-13] MEDS: LORATADINE 10 MG TABLET PO SCH (10:10)
[2023-01-13] MEDS: ENOXAPARIN NA (PORCINE) 40 MG/0.4 ML DISP.SYRIN SQ SCH (10:10)
[2023-01-13] MEDS: DOXYCYCLINE INJECTION 100 MG in DEXTROSE 5%-WATER 100 ML IVPB SCH ×2 (10:10→21:00)
[2023-01-13] MEDS: TIOTROPIUM BROMIDE 2.5 MCG (SPIRIVA) RESPIMAT INHALER IH SCH (10:12)
[2023-01-13] MEDS: BUDESONIDE/FORMETEROL FUMARATE 160/4.5 mcg INHALER IH SCH ×2 (10:12→21:01)
[2023-01-13 10:33] LABS: CHLORIDE 102 mmol/L (98-107); POTASSIUM 3.7 mmol/L (3.5-5.1); SODIUM 135 mmol/L (136-145)
[2023-01-13 10:36] LABS: CALCIUM 8.7 mg/dL (8.5-10.1)
[2023-01-13 10:37] LABS: ALBUMIN 3.5 g/dl (3.4-5.0); ANION GAP 9 MMOL/L (8-16); CO2 24 mmol/L (21-32); GLUCOSE,RANDOM 232 mg/dL (74-106); MAGNESIUM 2.1 mg/dL (1.8-2.4)
[2023-01-13 10:40] LABS: SGOT/AST 14 U/L (15-37); SGPT/ALT 34 U/L (13-61)
[2023-01-13 10:41] LABS: TOT PROT 7.2 g/dl (6.4-8.2)
[2023-01-13 10:42] LABS: ALK PHOS 53 U/L (45-117)
[2023-01-13 10:43] LABS: BILIRUBIN,TOTAL < 0.1 mg/dL (0.2-1)
[2023-01-13 11:01] LABS: ANISOCYTOSIS 0; HELMET CELLS 0; HOWELL-JOLLY BODIES 0; MACROCYTOSIS 0; OVALOCYTE 0; ROULEAU 0; SICKELED CELLS 0; TARGET CELLS 0; TEAR DROP CELLS 0; TOXIC GRANULATION 0
[2023-01-13] MEDS: MONTELUKAST NA 10 MG TABLET PO SCH (21:00)
[2023-01-14] MEDS: methylPREDNISolone NA SUCC 125 MG/2 ML VIAL IVPUSH SCH ×4 (02:51→20:51)
[2023-01-14] MEDS: ALBUTEROL SO4 0.083% IH SOL 2.5 MG/3 ML VIAL.NEB. NEB PRN ×2 (06:15→18:52)
[2023-01-14] MEDS: ALBUTEROL SO4 0.083% IH SOL 2.5 MG/3 ML VIAL.NEB. NEB SCH ×4 (08:00→19:48)
[2023-01-14 08:50] VITALS: RESP 18
[2023-01-14 09:56] LABS: HEMATOCRIT 43.8 % (32.4-45.2); HEMOGLOBIN 14.1 GM/dL (10.7-15.3); MCH 30.7 pg (25.7-33.7); MCHC 32.2 g/dl (32.0-36.0); MEAN CELL VOLUME 95.2 fl (80-96); MEAN PLT VOLUME 7.7 fl (7.5-11.1); PLATELET COUNT 438 10^3/uL (134-434); RDW 14.9 % (11.6-15.6); WHITE BLOOD COUNT 23.2 K/mm3 (4.0-10.0)
[2023-01-14] MEDS: ENOXAPARIN NA (PORCINE) 40 MG/0.4 ML DISP.SYRIN SQ SCH (10:52)
[2023-01-14 10:53] LABS: BLOOD UREA NITROGEN 17.1 mg/dL (7-18); CALCIUM 8.9 mg/dL (8.5-10.1)
[2023-01-14] MEDS: LORATADINE 10 MG TABLET PO SCH (10:53)
[2023-01-14 10:54] LABS: ALBUMIN 3.6 g/dl (3.4-5.0)
[2023-01-14] MEDS: DOXYCYCLINE INJECTION 100 MG in DEXTROSE 5%-WATER 100 ML IVPB SCH ×2 (10:54→21:01)
[2023-01-14] MEDS: TIOTROPIUM BROMIDE 2.5 MCG (SPIRIVA) RESPIMAT INHALER IH SCH (10:55)
[2023-01-14] MEDS: BUDESONIDE/FORMETEROL FUMARATE 160/4.5 mcg INHALER IH SCH ×2 (10:55→21:01)
[2023-01-14 10:57] LABS: CREATININE 0.9 mg/dL (0.55-1.3)
[2023-01-14 10:58] LABS: BILIRUBIN,TOTAL 0.3 mg/dL (0.2-1); TOT PROT 7.2 g/dl (6.4-8.2)
[2023-01-14] MEDS ORDERED: PATIENT'S OWN MEDICATION (NON-FORMULARY) (Cetirizine Hcl [Zyrtec] 10 MG Tablet) PO SCH (13:00)
[2023-01-14] MEDS: MONTELUKAST NA 10 MG TABLET PO SCH (21:01)
[2023-01-15] MEDS: methylPREDNISolone NA SUCC 125 MG/2 ML VIAL IVPUSH SCH ×4 (02:45→21:01)
[2023-01-15] MEDS: ALBUTEROL SO4 0.083% IH SOL 2.5 MG/3 ML VIAL.NEB. NEB SCH ×4 (08:15→20:05)
[2023-01-15] MEDS: DOXYCYCLINE INJECTION 100 MG in DEXTROSE 5%-WATER 100 ML IVPB SCH ×2 (11:00→21:01)
[2023-01-15] MEDS: LORATADINE 10 MG TABLET PO SCH (11:01)
[2023-01-15] MEDS: ENOXAPARIN NA (PORCINE) 40 MG/0.4 ML DISP.SYRIN SQ SCH (11:01)
[2023-01-15] MEDS: TIOTROPIUM BROMIDE 2.5 MCG (SPIRIVA) RESPIMAT INHALER IH SCH (11:03)
[2023-01-15] MEDS: BUDESONIDE/FORMETEROL FUMARATE 160/4.5 mcg INHALER IH SCH ×2 (11:03→21:02)
[2023-01-15 11:08] LABS: HEMATOCRIT 41.7 % (32.4-45.2); HEMOGLOBIN 14.2 GM/dL (10.7-15.3); MCH 31.6 pg (25.7-33.7); MEAN PLT VOLUME 7.5 fl (7.5-11.1); PLATELET COUNT 443 10^3/uL (134-434); RBC 4.49 M/mm3 (3.60-5.2); RDW 14.7 % (11.6-15.6); WHITE BLOOD COUNT 24.1 K/mm3 (4.0-10.0)
[2023-01-15] MEDS: ACETAMINOPHEN 325 MG TABLET (FP) PO PRN ×2 (11:15→19:45)
[2023-01-15 11:32] LABS: POTASSIUM 3.7 mmol/L (3.5-5.1)
[2023-01-15 11:37] LABS: ALBUMIN 3.4 g/dl (3.4-5.0); CALCIUM 8.7 mg/dL (8.5-10.1)
[2023-01-15 11:38] LABS: BLOOD UREA NITROGEN 19.1 mg/dL (7-18)
[2023-01-15 11:40] LABS: CREATININE 0.9 mg/dL (0.55-1.3); PHOSPHOROUS 3.5 mg/dL (2.5-4.9)
[2023-01-15 11:42] LABS: BILIRUBIN,TOTAL 0.2 mg/dL (0.2-1)
[2023-01-15 11:44] LABS: MAGNESIUM 2.3 mg/dL (1.8-2.4)
[2023-01-15 13:31] LABS: ANISOCYTOSIS 0; MACROCYTOSIS 0; TEAR DROP CELLS 2+
[2023-01-15 15:51] LABS: N-TERMINAL BNP 23.5 pg/ml (5-125)
[2023-01-15] MEDS: MONTELUKAST NA 10 MG TABLET PO SCH (21:01)
[2023-01-16] MEDS: methylPREDNISolone NA SUCC 125 MG/2 ML VIAL IVPUSH SCH ×4 (03:03→21:55)
[2023-01-16] MEDS: ALBUTEROL SO4 0.083% IH SOL 2.5 MG/3 ML VIAL.NEB. NEB SCH ×4 (07:50→20:14)
[2023-01-16] MEDS: DOXYCYCLINE INJECTION 100 MG in DEXTROSE 5%-WATER 100 ML IVPB SCH ×2 (09:01→21:59)
[2023-01-16] MEDS: ENOXAPARIN NA (PORCINE) 40 MG/0.4 ML DISP.SYRIN SQ SCH (09:01)
[2023-01-16] MEDS: LORATADINE 10 MG TABLET PO SCH (09:01)
[2023-01-16] MEDS: TIOTROPIUM BROMIDE 2.5 MCG (SPIRIVA) RESPIMAT INHALER IH SCH (09:02)
[2023-01-16] MEDS: BUDESONIDE/FORMETEROL FUMARATE 160/4.5 mcg INHALER IH SCH ×2 (09:02→21:59)
[2023-01-16] MEDS: ACETAMINOPHEN 325 MG TABLET (FP) PO PRN ×2 (09:09→21:59)
[2023-01-16 10:25] LABS: HEMATOCRIT 44.1 % (32.4-45.2); HEMOGLOBIN 14.9 GM/dL (10.7-15.3); MCH 31.4 pg (25.7-33.7); MCHC 33.8 g/dl (32.0-36.0); MEAN CELL VOLUME 92.8 fl (80-96); MEAN PLT VOLUME 7.2 fl (7.5-11.1); PLATELET COUNT 437 10^3/uL (134-434); RBC 4.75 M/mm3 (3.60-5.2); RDW 14.8 % (11.6-15.6); WHITE BLOOD COUNT 24.1 K/mm3 (4.0-10.0)
[2023-01-16 10:38] LABS: POTASSIUM 3.8 mmol/L (3.5-5.1)
[2023-01-16 10:46] LABS: ALBUMIN 3.3 g/dl (3.4-5.0); BLOOD UREA NITROGEN 18.8 mg/dL (7-18); CALCIUM 8.8 mg/dL (8.5-10.1); MAGNESIUM 2.4 mg/dL (1.8-2.4)
[2023-01-16 10:50] LABS: CREATININE 0.9 mg/dL (0.55-1.3)
[2023-01-16 10:51] LABS: BILIRUBIN,TOTAL 0.3 mg/dL (0.2-1)
[2023-01-16 11:56] LABS: ANISOCYTOSIS 0; HELMET CELLS 0; HOWELL-JOLLY BODIES 0; MACROCYTOSIS 0; OVALOCYTE 0; ROULEAU 0; SICKELED CELLS 0; TARGET CELLS 0; TEAR DROP CELLS 0; TOXIC GRANULATION 0
[2023-01-16] MEDS: MONTELUKAST NA 10 MG TABLET PO SCH (21:58)
[2023-01-17] MEDS: methylPREDNISolone NA SUCC 125 MG/2 ML VIAL IVPUSH SCH ×2 (03:02→10:16)
[2023-01-17] MEDS: ALBUTEROL SO4 0.083% IH SOL 2.5 MG/3 ML VIAL.NEB. NEB SCH ×2 (07:15→11:54)
[2023-01-17] MEDS: DOXYCYCLINE INJECTION 100 MG in DEXTROSE 5%-WATER 100 ML IVPB SCH (10:16)
[2023-01-17] MEDS: LORATADINE 10 MG TABLET PO SCH (10:16)
[2023-01-17] MEDS: BUDESONIDE/FORMETEROL FUMARATE 160/4.5 mcg INHALER IH SCH (10:16)
[2023-01-17] MEDS: TIOTROPIUM BROMIDE 2.5 MCG (SPIRIVA) RESPIMAT INHALER IH SCH (10:17)
[2023-01-17] MEDS: FLUTICASONE/UMECLIDIN/VILANTER(200-62.5-25 TRELEGY ELLIPTA) INAHLER IH SCH (14:13)
[2023-01-17] MEDS: ALBUTEROL SO4 0.083% IH SOL 2.5 MG/3 ML VIAL.NEB. NEB PRN ×2 (15:29→19:57)
[2023-01-17] MEDS: methylPREDNISolone NA SUCC 40 MG/1 ML VIAL IVPUSH SCH (17:16)
[2023-01-17] MEDS: MONTELUKAST NA 10 MG TABLET PO SCH (21:25)
[2023-01-18] MEDS: methylPREDNISolone NA SUCC 40 MG/1 ML VIAL IVPUSH SCH ×5 (01:21→21:23)
[2023-01-18] MEDS: ACETAMINOPHEN 325 MG TABLET (FP) PO PRN ×2 (05:29→18:38)
[2023-01-18] MEDS: ALBUTEROL SO4 0.083% IH SOL 2.5 MG/3 ML VIAL.NEB. NEB PRN ×5 (07:20→23:44)
[2023-01-18] MEDS: LORATADINE 10 MG TABLET PO SCH (09:31)
[2023-01-18] MEDS: FLUTICASONE/UMECLIDIN/VILANTER(200-62.5-25 TRELEGY ELLIPTA) INAHLER IH SCH (10:54)
[2023-01-18] MEDS: MONTELUKAST NA 10 MG TABLET PO SCH (21:23)
[2023-01-19] MEDS ORDERED: guaiFENesin/D-METHORPHAN HB 10 ML UNIT-DOSE CUPS PO PRN (08:08)
[2023-01-19] MEDS: ALBUTEROL SO4 2.5/IPRATROPIUM 0.5 INH SOL 3 ML VIAL.NEB. NEB SCH ×4 (08:11→20:15)
[2023-01-19] MEDS: LORATADINE 10 MG TABLET PO SCH (09:22)
[2023-01-19] MEDS: PANTOPRAZOLE 40 MG TABLET PO SCH (09:22)
[2023-01-19] MEDS: predniSONE 20 MG TABLET (UD) PO SCH ×2 (09:22→21:57)
[2023-01-19] MEDS: FLUTICASONE/UMECLIDIN/VILANTER(200-62.5-25 TRELEGY ELLIPTA) INAHLER IH SCH (09:23)
[2023-01-19] MEDS: FLUTICASONE PROP 0.05% 16 GM NASAL SPRAY NS SCH (11:08)
[2023-01-19 11:20] LABS: HEMATOCRIT 39.4 % (32.4-45.2); HEMOGLOBIN 13.6 GM/dL (10.7-15.3); MCH 32.1 pg (25.7-33.7); MCHC 34.5 g/dl (32.0-36.0); MEAN CELL VOLUME 93.2 fl (80-96); PLATELET COUNT 365 10^3/uL (134-434); RBC 4.22 M/mm3 (3.60-5.2); RDW 15.2 % (11.6-15.6)
[2023-01-19] MEDS: MONTELUKAST NA 10 MG TABLET PO SCH (22:05)
[2023-01-20] MEDS: ALBUTEROL SO4 2.5/IPRATROPIUM 0.5 INH SOL 3 ML VIAL.NEB. NEB SCH ×2 (07:45→11:50)
[2023-01-20] MEDS: predniSONE 20 MG TABLET (UD) PO SCH (09:39)
[2023-01-20] MEDS: FLUTICASONE PROP 0.05% 16 GM NASAL SPRAY NS SCH (09:40)
[2023-01-20] MEDS: LORATADINE 10 MG TABLET PO SCH (09:40)
[2023-01-20] MEDS: PANTOPRAZOLE 40 MG TABLET PO SCH (09:40)
[2023-01-20] MEDS: FLUTICASONE/UMECLIDIN/VILANTER(200-62.5-25 TRELEGY ELLIPTA) INAHLER IH SCH (09:40)
[2023-01-20 10:11] VITALS: BP 107/63; PULSE 92; TEMP 98.4
[2023-01-20 11:01] LABS: HEMATOCRIT 41.7 % (32.4-45.2); HEMOGLOBIN 13.7 GM/dL (10.7-15.3); MCH 31.2 pg (25.7-33.7); MCHC 32.8 g/dl (32.0-36.0); MEAN CELL VOLUME 95.2 fl (80-96); PLATELET COUNT 381 10^3/uL (134-434); RBC 4.38 M/mm3 (3.60-5.2); RDW 14.7 % (11.6-15.6)
[2023-01-20 12:50] LABS: ALBUMIN 3.2 g/dl (3.4-5.0); BILIRUBIN,TOTAL 0.3 mg/dL (0.2-1); BLOOD UREA NITROGEN 16.6 mg/dL (7-18); CALCIUM 8.7 mg/dL (8.5-10.1); CREATININE 0.9 mg/dL (0.55-1.3); POTASSIUM 4.1 mmol/L (3.5-5.1); TOT PROT 6.7 g/dl (6.4-8.2)
== END 2023-01-20 14:38 | disposition home or self-care (01) | DRG 141 ==
LOC: JER 14:38 → JERFT 14:38 → JERBED 18:11 → J5S 22:13 → OBSVTOIN 01-11 15:18 → J5S 01-19 13:32
PROVIDERS: ADMIT Internal Medicine; ATTEND Internal Medicine
DX: J45.51 Severe persistent asthma with (acute) exacerbation (principal); J96.01 Acute respiratory failure with hypoxia; K21.9 Gastro-esophageal reflux disease without esophagitis; J30.9 Allergic rhinitis, unspecified; J98.11 Atelectasis
CPT/HCPCS: 0241U-QW; 36415; 71045-TC-FY; 71046-TC-FY; 71275-TC; 80048; 80053; 83735; 83880; 84100; 85025; 85027; 85379; 87635; 93005; 93010; 93306-TC; 93970-TC; 94150; 94640; 94761; 97116-GP; 97161-GP; 99285-25; G0378; J1100; Q9967

== ENCOUNTER 2023-03-10 04:36 | Day surgery (SDC) | payer OTHER ==
[2023-02-26 10:33] VITALS: BMI 32.6
[2023-03-10] MEDS ORDERED: BUPIVACAINE HCL/PF 0.5% (5MG/ML) 10 ML VIAL ONE (07:12)
[2023-03-10] MEDS ORDERED: SUCCINYLCHOLINE CHLORIDE 200 MG/10 ML SYRINGE ONE (07:54)
[2023-03-10] MEDS ORDERED: FENTANYL CITRATE/PF 50 MCG/ML VIAL ONE ×2 (07:54→08:14)
[2023-03-10] MEDS ORDERED: PROPOFOL 40 ML ONE (07:54)
[2023-03-10] MEDS ORDERED: MIDAZOLAM HCL 2 MG/2 ML SINGLE DOSE VIAL ONE (07:54)
[2023-03-10] MEDS ORDERED: ALBUTEROL SO4 HFA INHALER IH ONE (08:00)
[2023-03-10] MEDS ORDERED: ceFAZolin SODIUM 1 GM VIAL IVPB ONE (08:11)
[2023-03-10] MEDS ORDERED: BUPIVACAINE HCL/PF 0.5% (5 MG/ML) 30 ML VIAL IJ ONE ×2 (08:21)
[2023-03-10] MEDS ORDERED: BENZOIN/ALOE VERA/STORAX/TOLU 58 ML BOTTLE TP ONE (09:00)
[2023-03-10] MEDS ORDERED: oxyCODONE HCL 5 MG TABLET PO PRN (09:13)
[2023-03-10] MEDS ORDERED: PROMETHAZINE HCL 25 MG/1 ML VIAL IVPB PRN (09:13)
[2023-03-10] MEDS ORDERED: LACTATED RINGERS SOLUTION 1,000 ML IV SCH (09:15)
[2023-03-10 10:58] VITALS: RESP 16; TEMP 98.5
[2023-03-10 14:32] VITALS: BP 108/60
[2023-03-10 14:35] VITALS: PULSE 85
== END 2023-03-10 14:00 | disposition home or self-care (01) ==
LOC: JASU-SURG 04:36
PROVIDERS: ATTEND Surgery
PROC: 0WQF0ZZ Repair Abdominal Wall, Open Approach (ICD-10-PCS; principal; 2023-03-10 08:00)
DX: K42.9 Umbilical hernia without obstruction or gangrene (principal)
CPT/HCPCS: 81025; 94760

== ENCOUNTER 2023-05-14 14:24 | Emergency (ER) | payer OTHER ==
[2023-05-14 14:40] VITALS: BP 150/80; PULSE 92; RESP 18; TEMP 98.2; BMI 34.0
[2023-05-14 16:29] LABS: THROAT:GRP A STREP NOT DETECTED (NOTDETECTED)
== END 2023-05-14 17:03 | disposition home or self-care (01) ==
LOC: JERFT 14:24
DX: R05.9 Cough, unspecified (principal); Z20.822 Contact with and (suspected) exposure to COVID-19
CPT/HCPCS: 0241U-QW; 87651; 99283-25

== ENCOUNTER 2023-10-22 04:33 | Day surgery (SDC) | payer OTHER ==
[2023-10-12 17:37] VITALS: BMI 33.0
[2023-10-22] MEDS ORDERED: BUPIVACAINE HCL/PF 0.5% (5MG/ML) 10 ML VIAL ONE (07:18)
[2023-10-22] MEDS ORDERED: LIDOCAINE HCL 1%, 10 MG/ML (20ML VIAL) ONE (07:18)
[2023-10-22] MEDS ORDERED: GENTAMICIN SO4 80 MG/2 ML VIAL ONE (07:18)
[2023-10-22] MEDS ORDERED: LIDOCAINE HCL/PF 2% SDV 5ML VIAL ONE (10:04)
[2023-10-22] MEDS ORDERED: MIDAZOLAM HCL 2 MG/2 ML SINGLE DOSE VIAL ONE (10:05)
[2023-10-22] MEDS ORDERED: FENTANYL CITRATE/PF 50 MCG/ML VIAL ONE ×4 (10:05→13:46)
[2023-10-22] MEDS ORDERED: PROPOFOL 20 ML ONE (10:05)
[2023-10-22] MEDS ORDERED: ceFAZolin SODIUM 1 GM VIAL ONE (10:39)
[2023-10-22] MEDS ORDERED: DEXAMETHASONE SOD PHOSPHATE 4 MG/1 ML VIAL ONE (10:39)
[2023-10-22] MEDS: ceFAZolin SODIUM 1 GM VIAL IVPB ONE (10:40)
[2023-10-22] MEDS: LIDOCAINE HCL 1%, 10 MG/ML (20ML VIAL) NR ONE ×3 (10:40)
[2023-10-22] MEDS: BUPIVACAINE HCL/PF 0.5% (5MG/ML) 10 ML VIAL IJ ONE (11:02)
[2023-10-22] MEDS ORDERED: KETOROLAC TROMETHAMINE 30 MG/1 ML VIAL ONE (12:44)
[2023-10-22] MEDS ORDERED: ONDANSETRON 4 MG/2 ML VIAL ONE (12:44)
[2023-10-22] MEDS: ACETAMINOPHEN 1000 MG/100 ML BAG IVPB ONE (13:10)
[2023-10-22] MEDS ORDERED: ONDANSETRON 4 MG/2 ML VIAL IVPUSH PRN (13:12)
[2023-10-22] MEDS ORDERED: PROMETHAZINE HCL 25 MG/1 ML VIAL IVPB PRN (13:12)
[2023-10-22] MEDS ORDERED: oxyCODONE HCL 5 MG TABLET PO PRN ×2 (13:12)
[2023-10-22] MEDS ORDERED: LACTATED RINGERS SOLUTION 1,000 ML IV SCH (13:15)
[2023-10-22] MEDS ORDERED: ACETAMINOPHEN INJECTION 100 ML IVPB ONE (13:15)
[2023-10-22 13:43] VITALS: RESP 16
[2023-10-22 15:10] VITALS: BP 118/60; PULSE 70; TEMP 98
== END 2023-10-22 15:39 | disposition home or self-care (01) ==
LOC: JASU-SURG 04:33
PROVIDERS: ATTEND Podiatrist Foot & Ankle Surgery
PROC: 0QBP0ZZ Excision of Left Metatarsal, Open Approach (ICD-10-PCS; 2023-10-22)
PROC: 0QBR0ZZ Excision of Left Toe Phalanx, Open Approach (ICD-10-PCS; 2023-10-22)
PROC: 0SNN0ZZ Release Left Metatarsal-Phalangeal Joint, Open Approach (ICD-10-PCS; 2023-10-22)
PROC: 0QSP04Z Reposition Left Metatarsal with Internal Fixation Device, Open Approach (ICD-10-PCS; principal; 2023-10-22 10:00)
PROC: 0QSR04Z Reposition Left Toe Phalanx with Internal Fixation Device, Open Approach (ICD-10-PCS; 2023-10-22 10:00)
DX: M20.12 Hallux valgus (acquired), left foot (principal); M24.575 Contracture, left foot
CPT/HCPCS: 28299; 28310; C1713; 73630-TC-LT; 76000-TC-FY; 81025; 94760; 97116-GP; J0131

== ENCOUNTER 2024-03-29 05:50 | Emergency (ER) | payer OTHER ==
[2024-03-29 05:56] VITALS: RESP 20; BMI 32.8
[2024-03-29] MEDS ORDERED: predniSONE 10 MG TABLET (UD) ONE (07:44)
[2024-03-29] MEDS ORDERED: predniSONE 20 MG TABLET (UD) ONE (07:44)
[2024-03-29] MEDS ORDERED: ALBUTEROL SO4 2.5/IPRATROPIUM 0.5 INH SOL 3 ML VIAL.NEB. NEB ONE (07:44)
[2024-03-29] MEDS ORDERED: ACETAMINOPHEN 500 MG TABLET (FP) ONE (07:47)
[2024-03-29] MEDS: ALBUTEROL SO4 2.5/IPRATROPIUM 0.5 INH SOL 3 ML VIAL.NEB. NEB ONE (07:54)
[2024-03-29] MEDS: ACETAMINOPHEN 500 MG TABLET (FP) PO ONE (07:54)
[2024-03-29] MEDS: predniSONE 10 MG TABLET (UD) PO ONE (07:55)
[2024-03-29 09:11] VITALS: BP 131/64; PULSE 108
[2024-03-29 09:18] VITALS: TEMP 98.5
== END 2024-03-29 09:19 | disposition home or self-care (01) ==
LOC: JER 05:50
PROC: 3E0F7GC Introduction of Other Therapeutic Substance into Respiratory Tract, Via Natural or Artificial Opening (ICD-10-PCS; principal; 2024-03-29)
DX: J10.1 Influenza due to other identified influenza virus with other respiratory manifestations (principal); J06.9 Acute upper respiratory infection, unspecified; R05.9 Cough, unspecified; R09.81 Nasal congestion; R50.9 Fever, unspecified; Z20.822 Contact with and (suspected) exposure to COVID-19
CPT/HCPCS: 0241U-QW; 71046-TC-FY; 99284-25